=== PATIENT | female | born 1980 | race Caucasian/White ===

== ENCOUNTER 2018-07-12 10:30 | Emergency (ER) | payer OTHER ==
[~2018-07-12] VITALS: Ht 157.5 cm; Wt 102.1 kg
[2018-07-12] MEDS ORDERED: ANTICONCEPTIVOS (10:40)
== END 2018-07-12 14:05 | disposition home or self-care (01) ==
LOC: ER 10:30
DX: M54.5 Low back pain (principal)

== ENCOUNTER 2019-01-03 15:37 | Emergency (ER) | payer OTHER ==
[~2019-01-03] VITALS: Ht 157.5 cm; Wt 108.9 kg
[~2019-01-03 15:37] MED LIST: ANTICONCEPTIVOS
[2019-01-03] MEDS ORDERED: TRAMADOL HCL7.5 GM (17:17)
[2019-01-03] MEDS ORDERED: TRINTELLIX5 MG (17:18)
[2019-01-03] MEDS ORDERED: ATENOLOL25 MG (17:18)
[2019-01-04] MEDS ORDERED: CIPRO500 MG PO ×2 (07:40→07:41)
[2019-01-04] MEDS ORDERED: TAMS0.4C PO ×2 (07:40→07:41)
[2019-01-04] MEDS ORDERED: KETO10TA2 PO (07:40)
== END 2019-01-04 08:27 | disposition home or self-care (01) ==
LOC: ER 15:37
DX: N20.0 Calculus of kidney (principal); R10.32 Left lower quadrant pain; R11.0 Nausea

== ENCOUNTER 2019-01-06 15:25 | Outpatient (CLI) | payer OTHER ==
[~2019-01-06 15:25] MED LIST changes: +ATENOLOL25 MG; +CIPRO500 MG PO; +KETO10TA2 PO; +TAMS0.4C PO; +TRAMADOL HCL7.5 GM; +TRINTELLIX5 MG
== END 2019-01-06 15:34 | disposition home or self-care (01) ==
LOC: RAD 15:25
DX: N13.2 Hydronephrosis with renal and ureteral calculous obstruction (principal); N13.4 Hydroureter

== ENCOUNTER 2020-09-22 08:31 | Outpatient (CLI) | payer OTHER | END 2020-09-22 08:57 | disposition home or self-care (01) | LOC: RAD 08:31 → MAMO-SONO 09:15 | PROVIDERS: ATTEND Urology | DX: N83.8 Other noninflammatory disorders of ovary, fallopian tube and broad ligament (principal); R31.0 Gross hematuria; N30.00 Acute cystitis without hematuria; N13.2 Hydronephrosis with renal and ureteral calculous obstruction; N13.4 Hydroureter ==

== ENCOUNTER 2021-04-29 11:25 | Emergency (ER) | payer OTHER ==
[~2021-04-29] VITALS: Ht 157.5 cm; Wt 103.0 kg
== END 2021-04-29 18:18 | disposition home or self-care (01) ==
LOC: ER 11:25
DX: N39.0 Urinary tract infection, site not specified (principal); R30.0 Dysuria

== ENCOUNTER 2022-05-25 17:02 | Emergency (ER) | payer OTHER ==
[~2022-05-25] VITALS: Ht 157.5 cm; Wt 101.6 kg
[2022-05-25] MEDS ORDERED: WELLBUTRIN XL300 MG PO (17:41)
== END 2022-05-25 20:19 | disposition home or self-care (01) ==
LOC: ER 17:02
DX: M51.26 Other intervertebral disc displacement, lumbar region (principal)

== ENCOUNTER 2024-04-08 17:34 | Emergency (ER) | payer OTHER ==
[~2024-04-08] VITALS: Ht 157.5 cm; Wt 106.1 kg
[~2024-04-08 17:34] MED LIST changes: +WELLBUTRIN XL300 MG PO
[2024-04-08] MEDS ORDERED: KETOROLAC TROMETHAMINE 60 MG VIAL IM ONE ×2 (19:45→20:39)
[2024-04-08] MEDS ORDERED: ORPHENADRINE CITRATE 30 MG/ML AMPUL IM ONE (19:45)
[2024-04-08] MEDS ORDERED: METHYLPREDNISOLONE SOD SUCC 125 MG VIAL IM ONE (20:00)
[2024-04-08] MEDS ORDERED: ORPHENADRINE CITRATE 30 MG/ML AMPUL ONE (20:38)
[2024-04-08] MEDS ORDERED: METHYLPREDNISOLONE SOD SUCC 125 MG VIAL ONE (20:39)
[2024-04-08 21:53] LABS: PH,URINE 7.5 (5.0-8.0); URINE APPEARANCE Turbid; URINE BILIRRUBIN Negative (NEGATIVE); URINE BLOOD Negative; URINE COLOR Dark Yellow; URINE GLUCOSE Negative (NEGATIVE); URINE LEUKOCYTE Trace; URINE NITRATE Negative; URINE PROTEIN 30 (NEGATIVE)
[2024-04-08 21:57] LABS: URINE RBC 43.3 uL (0.0-20.8); URINE WBC 112.8 uL (0.0-23.2)
[2024-04-08 22:17] LABS: URINE BACTERIA > 9821.5 uL (0.0-1933)
[2024-04-08 22:18] LABS: URINE CRYSTALS MANY /HPF; URINE MUCUS MODERATE
[2024-04-08] MEDS ORDERED: CEPHALEXIN500 M1 PO (22:40)
[2024-04-08] MEDS ORDERED: VOLTAREN ARTHRI20 GM TOP (22:41)
[2024-04-08] MEDS ORDERED: CEFTRIAXONE SODIUM 1,000 MG VIAL IM ONE (22:45)
[2024-04-08] MEDS ORDERED: TRAMADOL HCL 50 MG TABLET PO STA (23:02)
[2024-04-08] MEDS ORDERED: LIDOCAINE HCL/MPF 1% 5ML VIAL IJ ONE (23:11)
[2024-04-08] MEDS ORDERED: CEFTRIAXONE SODIUM 1,000 MG VIAL ONE (23:11)
== END 2024-04-08 23:16 ==
LOC: ER 17:35
PROVIDERS: Nurse Practitioner Family
DX: N39.0 Urinary tract infection, site not specified (principal); M54.50 Low back pain, unspecified; I10 Essential (primary) hypertension; E78.49 Other hyperlipidemia; Z20.822 Contact with and (suspected) exposure to COVID-19; B96.4 Proteus (mirabilis) (morganii) as the cause of diseases classified elsewhere
CPT/HCPCS: 72100; 96372; J0696; J1885; J2360; J3490